=== PATIENT | female | born 1935 | race Caucasian/White ===

== ENCOUNTER 2017-11-29 07:50 | Day surgery (SDC) | payer MEDICARE ==
[~2017-11-29 07:50] MED LIST: Buffered Lidocaine 0.9% SYRIN* 5 ML/SYR SYRINGE INTRADERM ONE; Famotidine IV* 10 MG/ML 2 ML (20 mg) IV ONE
[2017-11-29] MEDS ORDERED: Famotidine IV* 10 MG/ML 2 ML (20 mg) ONE (07:52)
[2017-11-29] MEDS ORDERED: ceFAZolin 2 GM in NS PREMIX(*) 2 GM/100 ML BAG IVPB ONE (08:07)
[2017-11-29] MEDS ORDERED: fentaNYL* 50 MCG/ML 2 ML VIAL (100 MCG VIAL) ONE (08:22)
[2017-11-29] MEDS ORDERED: Midazolam* 1 MG/ML 5 ML VIAL (5 MG) ONE (08:23)
[2017-11-29] MEDS ORDERED: HYDROmorphone INJ1* 1 MG/ML SYRINGE IV PRN (09:46)
[2017-11-29] MEDS ORDERED: oxyCODONE TAB* 5 MG TAB PO PRN (09:46)
[2017-11-29] MEDS ORDERED: Naloxone* 0.4 MG/ML 1 ML VIAL IV PRN (09:46)
[2017-11-29] MEDS ORDERED: Acetaminophen TAB* 325 MG PO PRN (09:46)
[2017-11-29] MEDS ORDERED: ROPIVACAINE 5 MG/ML 30 ML BTL (0.5%) ONE (09:47)
[2017-11-29] MEDS ORDERED: Propofol* 10 MG/ML 20 ML BTL IV PUSH ONE (10:22)
[2017-11-29] MEDS ORDERED: Ketorolac INJ* 30 MG/ML 1 ML VIAL ONE (10:22)
[2017-11-29] MEDS ORDERED: Lidocaine 2% PF * 5 ML VIAL ONE (10:22)
[2017-11-29] MEDS ORDERED: Midazolam* 1 MG/ML 2 ML VIAL (2 MG) ONE (10:47)
[2017-11-29 11:28] VITALS: BP 140/88
[2017-11-29] MEDS ORDERED: Dexamethasone IV* 4 MG/ML 1 ML (4 MG) ONE (13:06)
[2017-11-29] MEDS ORDERED: Lidocaine 1% INJ* 10 MG/ML 30 ML SDV ONE (13:06)
--- NOTE | 2017-11-30 01:55 | OP ---
DATE OF OPERATION: 11/29/17 - [facility] DATE OF : 39 SURGEON: Elia Gonzáles DPM UNDERCOVER OPERATOR: None. ANESTHESIA: MAC local. PRE-OP DIAGNOSIS: 1. Painful fourth ray hammertoe. 2. Painful fifth ray hammertoe. POST-OP DIAGNOSIS: 1. Painful fourth ray hammertoe. 2. Painful fifth ray hammertoe. OPERATIVE PROCEDURE: 1. Correction of fourth left hammertoe with PIPJ arthrodesis, extensor hallucis longus tendon lengthening and K-wire fixation, fourth digit right foot. 2. Correction of fifth ray hammertoe with PIPJ arthroplasty, extensor hallucis longus tendon lengthening and K-wire fixation, fifth digit right foot. PATHOLOGY: Degenerative bone. HEMOSTASIS: Pneumatic ankle tourniquet. MATERIALS: Two of the 0.045 inch K-wires. INDICATIONS: The patient with severe digital deformity and contracture of toes 4 and 5 causing pain while wearing shoes with redness, swelling and inflammation and making it painful to wear any closed shoe and walk. The patient opts for surgery to decrease the deformity, decrease the pain and improve her functional ability to walk with closed toe shoes. DESCRIPTION OF PROCEDURE: The patient was brought to the operating room, placed on the operating room table in supine position. The anesthesia department administered IV sedation and peripheral nerve block was performed about base of the toes 4 and 5 in the right foot. This was done with a 1:1 mixture of 1% lidocaine plain and 0.5% of ropivacaine plain. The right foot was prepped and draped in the usual fashion. The right foot was then exsanguinated with an Esmarch bandage and a pneumatic ankle tourniquet was inflated to 250 mmHg above a well-padded right ankle. Attention was directed to the dorsal aspect of the fourth digit where a curvilinear incision was made to allow for exposure of the PIPJ and the MTPJ. The extensor morgan was released. The extensor tendon was severely contracted and a Z extensor tendon lengthening procedure was performed and a transverse capsulotomy was performed of the metatarso-phalangeal joint. A transverse tenotomy and capsulotomy was performed at the PIPJ allowing for exposure of the proximal phalangeal head and base of the middle phalanx. The head of the proximal phalanx and the adjacent base of the middle phalanx were resected with a sagittal saw and the power emperatriz was used to smooth off the edges. The surgical site was flushed with copious amounts of normal sterile saline. Next a McGlamry elevator was used to free plantar capsular adhesions at the metatarsophalangeal joint. It was determined that a K-wire fixation was needed to maintain correction and allow for appropriate healing, so using a smooth 0.045-inch K-wire driven to the base of the middle phalanx to the tip of the toe retrograde into the proximal phalanx with care being taken to ensure that the tip of the wire did not penetrate into the metatarsophalangeal joint. This was assessed with C-arm. Next, attention was directed to the fifth right digit where a similar incision was made and dissection was carried to allow for exposure of the proximal interphalangeal joint and the metatarsophalangeal joint with care being taken to retract neurovascular structures and cauterize superficial bleeders as needed as was done with the fourth digit incision as well. The extensor morgan was released. The extensor tendon was very contracted and a Z extensor tendon lengthening procedure was performed and a transverse tenotomy and capsulotomy was performed at the proximal interphalangeal joint. The proximal phalangeal head was resected and a power emperatriz was used to smooth the rough edges. The surgical site was flushed with copious amounts of normal sterile saline. A transverse capsulotomy was needed and a McGlamry elevator was also used to free plantar capsular adhesions at the fifth metatarsophalangeal joint. A K-wire was also needed to maintain adequate positioning and heeling, a smooth 0.045-inch K-wire was driven through the base of the middle phalanx to the tip of the toe retrograde into the proximal phalanx. C-arm again was used to ensure that the tip of the K-wire did not penetrate into the metatarsophalangeal joint. The wires were then bent, cut and capped. Both incisions were flushed with copious amounts of normal sterile saline. In both incisions, the extensor tendon was reapproximated and secured with 4-0 Vicryl, the subcutaneous tissues were reapproximated and secured with 4-0 Vicryl, and skin was closed with 5-0 nylon at both incisions as well. 8 mg in total of dexamethasone phosphate was infiltrated about the surgical sites. The incisions were then dressed with Xeroform gauze and a splinting was performed secured with a leg Coban wrap to the forefoot. The pneumatic ankle tourniquet was deflated about the right ankle and a prompt hyperemic response was noted of all 5 digits of the patient' s right foot. Having appeared to tolerate the procedure and anesthesia well, the patient was transported via cart from the operating room to Recovery in a satisfactory condition with cap refill less than 3 seconds to all digits on the right foot. [id number]/[facility] #: [id number] MTDD
--- NOTE | 2017-11-30 17:59 | RAD ---
INDICATION: Hammertoe deformity correction. Technique: 5 seconds of?fluoroscopy?was provided?for the physician proceduralist. REPORT: Spot image documents percutaneous wires traversing the proximal and distal interphalangeal joints of the fourth and fifth toes. IMPRESSION: Procedural control films. CPT II Codes: G9500
--- NOTE | 2017-11-30 18:00 | RAD ---
INDICATION: RIGHT foot intraoperative fluoroscopy.. Technique: 11 seconds of?fluoroscopy?was provided?for the physician proceduralist. REPORT: Single spot image of the calcaneus obtained. IMPRESSION: Procedural control films. CPT II Codes: G9500
== END 2017-11-29 11:46 | disposition home or self-care (01) ==
LOC: OREAST 07:50
PROVIDERS: ATTEND Podiatrist Foot Surgery
DX: M20.41 Other hammer toe(s) (acquired), right foot (principal); I10 Essential (primary) hypertension; I34.1 Nonrheumatic mitral (valve) prolapse; M81.0 Age-related osteoporosis without current pathological fracture
CPT/HCPCS: 76000; 88304; 88311; C1776; J0690; J1100; J1885; J2250; J2704; J2795; J3010